=== PATIENT | female | born 1960 | race Caucasian/White ===

== ENCOUNTER 2023-11-12 18:15 | Emergency (ER) | payer BC, SELFPAY ==
[2023-11-12 18:20] VITALS: BP 119/77
[2023-11-12 20:00] VITALS: BP 126/63; BMI 36.4
--- NOTE | 2023-11-12 20:11 | ED.GENMED ---
History of Present Illness
General
Chief Complaint: Facial Problem
Source: patient and spouse
Exam Limitations: none
Time Seen by Provider: 11/12/23 19:57
Nursing documentation reviewed up to this point in time: agreed with
History of Present Illness
History of Present Illness:
This a pleasant 63-year-old female with a history of trigeminal neuralgia presents with left-sided facial pain and swelling. Patient states that she took her second dose of Wegovy and feels that she had an allergic reaction. She took a
benzodiazepine which she is prescribed and ibuprofen without relief. Denies chest pain or shortness of breath. Denies slurring of speech. States that this is typical for her trigeminal neuralgia. She does have Neurontin but she states that it
has so she did not take it. Reports no other symptoms.
Review of Systems
Review of Systems
Allergies reviewed?: Yes
All Other Systems: ROS reviewed and negative except as documented in HPI and ROS
Neurological: Reports other (Facial pain, swelling)
Psychiatric: Reports anxiety
Phy Exam
General Physical Exam
General Presentation: well appearing and no apparent distress
General age: appears stated age
General Skin: warm
General Habitus: normal
General Mental: alert
General Hydration: appears well hydrated
Cardiovascular Exam
Cardiovascular Exam: regular rate/rhythm
Neurological Exam
Neurological Exam: alert, oriented x3, no motor deficits, no sensory deficits and speech normal
Musculoskeletal Exam
Musculoskeletal Exam: full ROM, no edema and neuro vasc intact
Skin Exam
Skin Exam: normal color and warm/dry
Psychiatric Exam
Psychiatric Exam: normal mood/affect
Course
Orders/Labs/Results
Orders:
Orders
11/12/23 20:11
Dexamethasone Pf [Decadron] 10 mg PO NOW STA
Gabapentin [Neurontin] 100 mg PO NOW STA
Vital Signs
Initial and Last Documented VS:
Initial Vital Signs
Temp Pulse Resp BP Pulse Ox
98.5 F 79 16 119/77 100
11/12/23 18:20 11/12/23 18:20 11/12/23 18:20 11/12/23 18:20 11/12/23 18:20
Last Documented Vital Signs
Temp Pulse Resp BP Pulse Ox
98.5 F 79 16 126/63 95
11/12/23 18:20 11/12/23 18:20 11/12/23 18:20 11/12/23 20:00 11/12/23 20:00
*Pulse Oximetry
Patient hypoxic: no
*Critical Care Note
Total Time (30-74mins, 75-104mins- exclusive of procedures): Not Applicable
ED Attending Note
-
Portions of this chart may have been created with voice recognition software.� Occasional wrong word or��sound alike� substitutions may have occurred due to the inherent limitations of voice recognition software.
Discharge Plan
Departure
Patient Disposition: Home (Routine Discharge)
Date of Disposition: 11/12/23
Time of Disposition: 20:14
Patient with high blood pressure during this ER visit?: Yes
Discharge Problem:
Medication reaction, Trigeminal neuralgia pain
Instructions: Trigeminal neuralgia, Side effects from medicines, BLOOD PRESSURE
Prescriptions:
New
gabapentin [Neurontin] 100 mg capsule
100 mg PO TID Qty: 30 0RF
No Action
prednisone 20 mg tablet
40 mg PO DAILY 5 Days Qty: 10 0RF
azithromycin [Zithromax Z-Adiel] 250 mg tablet
250 mg PO DAILY Qty: 6 0RF
albuterol sulfate 2.5 mg /3 mL (0.083 %) solution for nebulization
2.5 mg inhalation Q4H PRN (Reason: bronchospasm) Qty: 75 0RF
Activity Restrictions/Additional Instructions:
Your prescriptions were sent electronically to the pharmacy that you specified.
It was a pleasure meeting you and taking part in your care. We hope for your continued healing and wellness.
Please read discharge instructions in their entirety. However, they are for general education and may not describe your exact diagnosis at discharge. Information on your ER visit and medical conditions were discussed with you along with appropriate
follow up information...
If indicated, please take your medications as instructed and indicated on discharge paperwork.
Please schedule a follow up appointment as directed. Call to schedule an appointment
Please return to the emergency department with ANY change in, persisting, or worsening of symptoms. If any of your symptoms do not improve, or persist, or become more severe within 6-12 hours, please return to the emergency department for further
care.
Please return to the emergency department if you develop a headache, neck pain/stiffness, fever greater than 100.4F, chest pain, shortness of breath, persistent nausea, vomiting, slurred speech, difficulty walking, numbness/tingling, weakness, signs
of infection or any other symptoms that are worrisome to you.
If you have any questions or concerns please do not hesitate to call the Hospital at or E-mail me directly at [email or web address]
Interventions
Interventions:
*Risk Screen - Suicide Last Done: 11/12/23 18:22
*Neglect/Abuse Screening Last Done: 11/12/23 18:22
ED- Fall Risk Assessment Last Done: 11/12/23 19:57
*ED COVID-19 Vaccine History Last Done: 11/12/23 19:59
ED- Neurological Assessment Last Done: 11/12/23 19:57
ED-Skin Assessment Last Done: 11/12/23 19:57
Discharge Date and Time
Print Language: [id number]
[2023-11-12] MEDS: DECADRON 10 MG PO (20:16)
[2023-11-12] MEDS: NEURONTIN 100 MG PO (20:16)
== END 2023-11-12 20:37 | disposition home or self-care (01) ==
LOC: EMR 18:15
PROVIDERS: EMERGENCY PHYSICIAN Student in an Organized Health Care Education/Training Program; FAMILY PHYSICIAN Internal Medicine
DX: R22.0 Localized swelling, mass and lump, head (principal); T50.995A Adverse effect of other drugs, medicaments and biological substances, initial encounter; G50.0 Trigeminal neuralgia
CPT/HCPCS: 99283

== ENCOUNTER 2024-09-02 06:20 | Day surgery (SDC) | payer BC, SELFPAY | END 2024-09-02 09:22 | disposition home or self-care (01) | LOC: GI 06:20 | PROVIDERS: ATTENDING PHYSICIAN Internal Medicine | DX: Z12.11 Encounter for screening for malignant neoplasm of colon (principal); D12.2 Benign neoplasm of ascending colon; D12.3 Benign neoplasm of transverse colon; Z80.0 Family history of malignant neoplasm of digestive organs | CPT/HCPCS: 45385; 45380; 88305 ==